=== PATIENT | male | born 1990 | race African-American/Black ===

== ENCOUNTER 2019-10-19 21:10 | Emergency (ER) | payer MEDICAID ==
[~2019-10-19] VITALS: Ht 175.3 cm; Wt 79.4 kg
[2019-10-19 21:22] VITALS: Ht 175.3 cm; Wt 79.4 kg
[2019-10-19 21:49] LABS: BILIRUBIN NEGATIVE (NEGATIVE); GLUCOSE NEGATIVE (NEGATIVE); KETONE NEGATIVE (NEGATIVE); NITRITE NEGATIVE (NEGATIVE); UROBILINOGEN NORMAL (NORMAL)
[2019-10-19 21:51] LABS: BACTERIA MODERATE /hpf (NEGATIVE); WHITE CELLS - URINE >50 /hpf (NEGATIVE)
[2019-10-19 22:10] VITALS: BP 118/80
== END 2019-10-19 22:10 | disposition home or self-care (01) ==
LOC: D.ER 21:10
PROVIDERS: Family Medicine
DX: A63.0 Anogenital (venereal) warts (principal); N34.2 Other urethritis; R30.0 Dysuria; R35.0 Frequency of micturition; R39.15 Urgency of urination; R36.9 Urethral discharge, unspecified; R21 Rash and other nonspecific skin eruption; R30.9 Painful micturition, unspecified

== ENCOUNTER 2020-02-03 23:04 | Emergency (ER) | payer MEDICAID ==
[~2020-02-03] VITALS: Ht 175.3 cm; Wt 49.9 kg
[2020-02-03 23:25] VITALS: Ht 175.3 cm; Wt 49.9 kg
[2020-02-04 00:31] LABS: ANION GAP 10.8 mmol/L (8-16); CALCIUM 8.9 mg/dL (8.5-10.1); CARBON DIOXIDE 27.6 mmol/L (21.0-32.0); CREATININE - SERUM 1.3 mg/dL (0.6-1.3); POTASSIUM - SERUM 3.4 mmol/L (3.5-5.1)
[2020-02-04 00:35] LABS: BASOPHILS 0.2 % (0-2); EOSINOPHILS 0.5 % (0-7); HEMATOCRIT 35.9 % (42.0-54.0); HEMOGLOBIN 12.2 g/dL (13.5-17.5); IMMATURE GRANULOCYTES 0.3 % (0-5); LYMPHOCYTES 22.2 % (15-50); MCH 31.6 pg (26.0-34.0); MEAN PLATELET VOLUME 9.4 fL (7.4-10.4); MONOCYTES 10.6 % (2-11); NEUTROPHILS 66.2 % (40-80); PLATELET COUNT 255 10x3/uL (130-400); RBC 3.86 10x6/uL (4.20-6.10); RDW 13.1 % (11.5-14.5); WBC 6.4 10x3/uL (4.8-10.8)
[2020-02-04 00:41] LABS: ALBUMIN 3.2 g/dL (3.4-5.0); BILIRUBIN - TOTAL 0.45 mg/dL (0.2-1.3); PROTEIN - SERUM 7.2 g/dL (6.4-8.2)
[2020-02-04 01:31] LABS: UDS - AMPHET POSITIVE QUAL (NEGATIVE); UDS - BARB NEGATIVE QUAL (NEGATIVE); UDS - BENZO NEGATIVE QUAL (NEGATIVE); UDS - COCAINE NEGATIVE QUAL (NEGATIVE); UDS - OPIATE NEGATIVE QUAL (NEGATIVE); UDS - PCP NEGATIVE QUAL (NEGATIVE); UDS - THC POSITIVE QUAL (NEGATIVE)
[2020-02-04 01:33] LABS: NITRITE NEGATIVE (NEGATIVE)
[2020-02-04 01:34] LABS: BACTERIA NONE SEEN HPF (NONE SEEN); BILIRUBIN NEGATIVE (NEGATIVE); EPITHELIAL CELLS NSEEN /hpf (0-5); KETONE NEGATIVE (NEGATIVE); UROBILINOGEN NORMAL mg/dL (< 2); WHITE CELLS - URINE RARE HPF (0-1)
[2020-02-04 07:27] VITALS: BP 134/79
== END 2020-02-04 07:27 | disposition home or self-care (01) ==
LOC: D.ER 23:04
PROVIDERS: Family Medicine
DX: R68.84 Jaw pain (principal); S02.40FA Zygomatic fracture, left side, initial encounter for closed fracture; X58.XXXA Exposure to other specified factors, initial encounter; F15.10 Other stimulant abuse, uncomplicated